=== PATIENT | male | born 1995 | race Caucasian/White ===

== ENCOUNTER 2016-08-23 19:45 | Emergency (ER) | payer OTHER, BC ==
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
== END 2016-08-23 21:34 | disposition disaster alternative care site (69) ==
LOC: GMED 19:45 → GACC 19:45
DX: M54.6 Pain in thoracic spine (principal); F17.210 Nicotine dependence, cigarettes, uncomplicated; V89.2XXA Person injured in unspecified motor-vehicle accident, traffic, initial encounter